=== PATIENT | female | born 1955 | race Caucasian/White ===

== ENCOUNTER 2020-12-23 11:13 | Day surgery (SDC) | payer BC ==
[2020-12-19 13:32] VITALS: BMI 27.9
[2020-12-23] MEDS ORDERED: Neomycin-Polymyxin 1 ML AMP ONE (13:12)
[2020-12-23] MEDS ORDERED: Bacitracin Zinc Ointment 30 gm TUBE ONE (13:12)
[2020-12-23] MEDS ORDERED: Betamet Acet/Betamet Na Ph 30 MG/5 ML VIAL ONE (13:12)
[2020-12-23] MEDS ORDERED: Bupivacaine PF 0.5% 30 ML VIAL ONE (13:12)
[2020-12-23] MEDS ORDERED: Lidocaine 1% PF 5 ML VIAL ONE (14:10)
[2020-12-23] MEDS ORDERED: Dexamethasone 20 MG/5 ML VIAL ONE (14:10)
[2020-12-23] MEDS ORDERED: Ondansetron PF 4 MG/2 ML Vial ONE (14:10)
[2020-12-23] MEDS ORDERED: PROPOFOL 200 MG/20 ML VIAL ONE (14:10)
[2020-12-23] MEDS ORDERED: PHENYLEPHRINE-NS 100 MCG/ML 10 ML SYRINGE ONE (14:10)
[2020-12-23] MEDS ORDERED: Fentanyl 100 MCG/2 ML VIAL ONE (14:28)
[2020-12-23] MEDS ORDERED: Ketorolac Tromethamine 30 MG/ML VIAL ONE ×2 (16:04→16:16)
== END 2020-12-23 17:15 | disposition home or self-care (01) ==
LOC: SDC 11:13
PROVIDERS: ATTEND Orthopaedic Surgery Hand Surgery
PROC: 01N50ZZ Release Median Nerve, Open Approach (ICD-10-PCS; principal; 2020-12-23)
DX: G56.03 Carpal tunnel syndrome, bilateral upper limbs (principal); M48.02 Spinal stenosis, cervical region; M77.8 Other enthesopathies, not elsewhere classified; M24.541 Contracture, right hand; M25.731 Osteophyte, right wrist; M1A.09X0 Idiopathic chronic gout, multiple sites, without tophus (tophi); M65.842 Other synovitis and tenosynovitis, left hand; M65.841 Other synovitis and tenosynovitis, right hand; M65.341 Trigger finger, right ring finger; I10 Essential (primary) hypertension; E78.5 Hyperlipidemia, unspecified; E11.9 Type 2 diabetes mellitus without complications; E78.00 Pure hypercholesterolemia, unspecified; Z79.52 Long term (current) use of systemic steroids; Z79.84 Long term (current) use of oral hypoglycemic drugs; Z79.899 Other long term (current) drug therapy
CPT/HCPCS: J0690; J0702; J1100; J1885; J2405; J2704; J3010; S0020

== ENCOUNTER 2021-03-26 15:43 | Observation (INO) | payer BC ==
[~2021-03-26 15:43] MED LIST: Iopamidol-370 76% 500 ML 1 ML ONE
[2021-03-26 16:31] LABS: #Eosinphils 0.2 thou/uL (0.0-0.7); #Lymphocytes 1.1 thou/uL (1.20-3.40); #Monocytes 0.8 thou/uL (0.11-0.59); #Neutrophils 4.8 thou/uL (1.40-6.50); %Basophils 0.6 % (0.0-1.0); %Eosinophils 2.3 % (0.0-10.0); %Lymphocytes 15.8 % (21.0-51.0); %Monocytes 10.9 % (0.0-10.0); %Neutrophils 70.5 % (42.0-75.0); Hemoglobin 11.5 g/dL (12.0-16.0); Mean Corpuscular HGB CONC 33.6 g/dL (32.0-36.0); Mean Corpuscular Hemoglobin 30.8 pg (27.0-31.0); Mean Corpuscular Volume 91.6 fL (78.0-98.0); Mean Platelet Volume 7.2 fL (7.4-10.4); Platelet Count 409 thou/uL (130-400); Red Blood Cell (RBC) Count 3.73 mill/uL (4.20-5.40); White Blood Cell (WBC) Count 6.8 thou/uL (4.8-10.8)
[2021-03-26 16:54] LABS: ALT (SGPT) 21 U/L (8-55); AST (SGOT) 26 U/L (5-34); Alkaline Phosphatase 61 U/L (40-110); Anion Gap 8 mmol/L (10-20); BUN (Urea Nitrogen) 16 mg/dL (9.8-20.1); Bilirubin, Total 0.4 mg/dL (0.2-1.2); Calc. Creatinine Clearance 0 mL/min (70-130); Calcium 9.1 mg/dL (7.8-10.44); Carbon Dioxide 26 mmol/L (23-31); Chloride 104 mmol/L (98-107); Globulin 3.6 g/dL (2.4-3.5); Glucose 104 mg/dL (80-115); Potassium 4.4 mmol/L (3.5-5.1); Protein, Total 6.6 g/dL (5.8-8.1); Sodium 134 mmol/L (136-145)
[2021-03-26] MEDS ORDERED: Ondansetron ODT 4 MG TAB SL PRN (19:15)
[2021-03-26] MEDS ORDERED: Acetaminophen 325 MG TAB PO PRN (19:15)
[2021-03-26] MEDS ORDERED: Ondansetron PF 4 MG/2 ML Vial IVP PRN (19:15)
[2021-03-26 19:29] VITALS: BMI 28.3
[2021-03-26] MEDS ORDERED: Dextrose 5% in Water 1,000 ML IV PRN (19:37)
[2021-03-26] MEDS ORDERED: Dextrose 50% Abboject 50 ML SYRINGE SLOW IVP PRN (19:37)
[2021-03-26 20:06] LABS: Troponin I 0.023 ng/mL (< 0.028)
[2021-03-26] MEDS ORDERED: Enoxaparin Sodium 80 MG/0.8 ML SYRINGE SC SCH (20:30)
[2021-03-26 20:35] LABS: SARS-CoV-2 NAA Rapid Test DETECTED (NotDetected)
[2021-03-26] MEDS ORDERED: traZODone HCl 50 MG TAB PO PRN (20:35)
[2021-03-26] MEDS ORDERED: Primidone 50 MG TAB PO SCH (21:00)
[2021-03-26] MEDS ORDERED: Rosuvastatin 5 MG TAB PO SCH (21:00)
[2021-03-26] MEDS ORDERED: Allopurinol 300 MG TAB PO SCH (21:00)
[2021-03-26] MEDS ORDERED: Lisinopril 20 MG TAB PO SCH (21:00)
[2021-03-26] MEDS: Ketorolac Tromethamine 30 MG/ML VIAL IVP PRN (21:22)
[2021-03-26 23:59] LABS: Troponin I 0.014 ng/mL (< 0.028)
[2021-03-27] MEDS: Ketorolac Tromethamine 30 MG/ML VIAL IVP PRN (06:05)
[2021-03-27 08:54] VITALS: TEMP 97.3
[2021-03-27] MEDS ORDERED: Enoxaparin Sodium 40 MG/0.4 ML SYRINGE SC SCH (09:00)
[2021-03-27] MEDS ORDERED: Enoxaparin Sodium 80 MG/0.8 ML SYRINGE SC SCH (09:00)
[2021-03-27] MEDS ORDERED: Furosemide 20 MG/2 ML VIAL SLOW IVP SCH (13:30)
[2021-03-27 14:11] VITALS: BP 143/65
[2021-03-27] MEDS ORDERED: predniSONE 20 MG TAB PO SCH (15:45)
== END 2021-03-27 16:42 | disposition home or self-care (01) ==
LOC: ERS 15:43 → 2SW 18:16
PROVIDERS: ADMIT Internal Medicine; ATTEND Internal Medicine
DX: M79.89 Other specified soft tissue disorders (principal); U07.1 COVID-19; M19.90 Unspecified osteoarthritis, unspecified site; D64.9 Anemia, unspecified; R01.1 Cardiac murmur, unspecified; R10.30 Lower abdominal pain, unspecified; M10.9 Gout, unspecified; I10 Essential (primary) hypertension; E11.9 Type 2 diabetes mellitus without complications; E78.5 Hyperlipidemia, unspecified; E87.70 Fluid overload, unspecified; Z79.84 Long term (current) use of oral hypoglycemic drugs; Z79.899 Other long term (current) drug therapy
CPT/HCPCS: 36415; 36416; 71045; 71275; 80053; 83880; 84484; 84550; 85025; 85379; 85652; 86140; 93005; 93970; J1650; J1885; J1940; J7512; Q9967; U0002

== ENCOUNTER 2021-05-01 12:06 | Emergency (ER) | payer BC ==
[2021-05-01 12:50] LABS: #Basophils 0.1 thou/uL (0.0-0.2); #Eosinphils 0.3 thou/uL (0.0-0.7); #Lymphocytes 1.1 thou/uL (1.20-3.40); #Neutrophils 7.2 thou/uL (1.40-6.50); %Basophils 0.8 % (0.0-1.0); %Eosinophils 2.8 % (0.0-10.0); %Lymphocytes 11.7 % (21.0-51.0); %Monocytes 10.5 % (0.0-10.0); %Neutrophils 74.2 % (42.0-75.0); Hemoglobin 12.5 g/dL (12.0-16.0); Mean Corpuscular HGB CONC 33.7 g/dL (32.0-36.0); Mean Platelet Volume 7.2 fL (7.4-10.4); Platelet Count 470 thou/uL (130-400); RBC Distribution Width 12.8 % (11.5-14.5); Red Blood Cell (RBC) Count 4.17 mill/uL (4.20-5.40); White Blood Cell (WBC) Count 9.7 thou/uL (4.8-10.8)
[2021-05-01 13:12] LABS: ALT (SGPT) 16 U/L (8-55); AST (SGOT) 20 U/L (5-34); Albumin 3.8 g/dL (3.4-4.8); Alkaline Phosphatase 82 U/L (40-110); Anion Gap 11 mmol/L (10-20); BUN (Urea Nitrogen) 14 mg/dL (9.8-20.1); Bilirubin, Total 0.3 mg/dL (0.2-1.2); Calc. Creatinine Clearance 0 mL/min (70-130); Calcium 9.7 mg/dL (7.8-10.44); Carbon Dioxide 25 mmol/L (23-31); Chloride 101 mmol/L (98-107); Globulin 3.6 g/dL (2.4-3.5); Glucose 84 mg/dL (80-115); Potassium 3.8 mmol/L (3.5-5.1); Protein, Total 7.4 g/dL (5.8-8.1); Sodium 133 mmol/L (136-145)
[2021-05-01 15:18] LABS: Bilirubin Negative (Negative); Blood, Urine Negative (Negative); Clarity Clear (Clear); Glucose, Urine (Dipstick) Normal (Negative); Ketone, Urine Negative (Negative); Leukocyte Negative Leu/uL (Negative); Nitrite Negative (Negative); Protein, Urine (Dipstick) 10 mg/dL (Neg-Trace); Specific Gravity, Urine 1.023 (1.002-1.036); Urobilinogen Normal mg/dL (Less than 2); pH, Urine 5.5 (5.0-9.0)
== END 2021-05-01 16:06 | disposition home or self-care (01) ==
LOC: ERS 12:06
DX: R19.7 Diarrhea, unspecified (principal); E11.9 Type 2 diabetes mellitus without complications; E78.5 Hyperlipidemia, unspecified; E78.00 Pure hypercholesterolemia, unspecified; I10 Essential (primary) hypertension; Z79.84 Long term (current) use of oral hypoglycemic drugs; Z79.52 Long term (current) use of systemic steroids; Z79.899 Other long term (current) drug therapy
CPT/HCPCS: 36415; 74177; 80053; 81003; 83690; 85025

== ENCOUNTER 2022-08-11 06:56 | Day surgery (SDC) | payer BC ==
[2022-08-10 10:08] VITALS: BMI 23.6
[2022-08-11] MEDS ORDERED: Lidocaine 1% PF 5 ML VIAL ONE (09:20)
[2022-08-11] MEDS ORDERED: PROPOFOL 200 MG/20 ML VIAL ONE (09:20)
== END 2022-08-11 10:51 | disposition home or self-care (01) ==
LOC: SDC 06:56
PROVIDERS: ATTEND Internal Medicine Gastroenterology
PROC: 0DJD8ZZ Inspection of Lower Intestinal Tract, Via Natural or Artificial Opening Endoscopic (ICD-10-PCS; principal; 2022-08-11)
DX: Z12.11 Encounter for screening for malignant neoplasm of colon (principal); K57.30 Diverticulosis of large intestine without perforation or abscess without bleeding; K64.8 Other hemorrhoids; Q43.8 Other specified congenital malformations of intestine; I25.10 Atherosclerotic heart disease of native coronary artery without angina pectoris; I10 Essential (primary) hypertension; M10.9 Gout, unspecified; E78.5 Hyperlipidemia, unspecified; K21.9 Gastro-esophageal reflux disease without esophagitis; Z79.631 Long term (current) use of antimetabolite agent; Z79.82 Long term (current) use of aspirin; Z79.84 Long term (current) use of oral hypoglycemic drugs; Z79.899 Other long term (current) drug therapy; Z95.5 Presence of coronary angioplasty implant and graft
CPT/HCPCS: J2704